=== PATIENT | male | born 1955 | race Caucasian/White ===

== ENCOUNTER 2019-09-09 16:48 | Emergency (ER) | payer BC, OTHER ==
[2019-09-09] MEDS ORDERED: Sodium Chloride 0.9% 1000 ML 1,000 ML IV STA (17:15)
[2019-09-09] MEDS ORDERED: Sodium Chloride 0.9% 1000 ML 1,000 ML ONE (17:43)
[2019-09-09 18:03] LABS: Absolute Neutrophil Ct (ANC) 7.58 (1.4-6.9); BASOPHIL % 0.3 % (0.0-0.4); Basophil (Absolute #) 0.03 (0-0.4); Eosinophil % 0.8 % (0.00-5.0); Eosinophil (Absolute #) 0.08 (0-0.5); Hematocrit 45.1 % (42-50); Hemoglobin 15.8 gm/dl (12.5-18.0); Lymphocyte (Absolute #) 1.53 (1.0-4.6); Lymphocytes % 15.8 % (24.0-44.0); Mean Cell Volume 89.5 fl (78-100); Mean Corpuscular Hemoglobin 31.3 pg (26-32); Mean Platelet Volume 11.5 fl (7.5-11.0); Monocyte (Absolute #) 0.49 (0.0-1.3); Neutrophil % 78.1 % (36.0-66.0); Platelet Count 221 K/mm3 (150-450); Red Blood Count 5.04 M/mm3 (4.1-5.6); Red Cell Distribution Width 12.4 % (11.5-14.0); White Blood Count 9.7 K/mm3 (4.0-10.5)
[2019-09-09 18:11] LABS: INR 1.05 (0.8-3.0); PROTIME 11.9 SECONDS (8.83-12.87)
[2019-09-09 18:15] LABS: ALBUMIN 4.1 g/dL (3.5-5.0); ALKALINE PHOSPHATASE 87 U/L (38-126); ANION GAP 10.4 MEQ/L (5-15); BLOOD UREA NITROGEN 21 mg/dL (9-20); CHLORIDE 106 mmol/L (98-107); Calcium 8.9 mg/dL (8.4-10.2); Carbon Dioxide 26 mmol/L (22-30); Creatinine 1 0.77 mg/dL (0.66-1.25); Glucose 101 mg/dL (74-106); LIPASE 58 U/L (23-300); Potassium 3.7 mmol/L (3.5-5.1); SGOT/AST 26 U/L (17-59); SGPT/ALT 29 U/L (0-50); SODIUM 139 mmol/L (137-145)
[2019-09-09 18:57] LABS: Appearance TURBID (CLEAR); Bilirubin NEGATIVE (NEGATIVE); Blood LARGE Ery/ul (0-5); Glucose 50 mg/dL (NEGATIVE); Ketones TRACE (NEGATIVE); Leukocyte Esterase NEGATIVE (NEGATIVE); Nitrite NEGATIVE (NEGATIVE); Protein,Urine Dip 100 (Negative); Urobilinogen NEGATIVE mg/dL (0-1)
[2019-09-09 18:58] LABS: Bacteria FEW /HPF (NEGATIVE); RBC >101 /HPF (0-2)
--- NOTE | 2019-09-09 19:10 | ERPHSYRPT ---
- History of Present Illness Time Seen by Provider: 09/09/19 17:15 Source: patient Exam Limitations: no limitations Patient Subjective Stated Complaint: Hematuria Triage Nursing Assessment: Patient ambulated back to ED and transferred self to bed. Patient A+O X3. Patient's skin pink, warm and dry. Patient complains of hematuria that started a few hours ago. Patient states he has been doing yard work with a tractor the past few days. Patient denies pain or discomfort. Patient urinated bright red blood. Physician History: Patient is a 64-year-old male presents to our ED with complaints of painless hematuria. Symptoms were observed approximately 3 PM today. Patient states that he has been on a riding mower over the past couple days cutting grass. No trauma. No fevers. No back pain. No abdominal pain. No history of kidney stones. No history of cancer. No history of cystitis. No history of UTI. No associated chest pain or shortness of breath. No nausea vomiting. No diarrhea. No easy bruising. No history of coagulopathy. Patient voices no other complaints at this time. Timing/Duration: today Activites at Onset: none Pain Radiation: none Severity of Pain-Max: none Severity of Pain-Current: none Modifying Factors: Improves With: nothing Prior abdominal problems: none Allergies/Adverse Reactions: No Known Drug Allergies Allergy (Unverified 09/09/19 17:04) Home Medications: Amlodipine Besylate 1 ea DAILY 09/09/19 [History] Ascorbic Acid [Vitamin C with Sammie Hips] 1 each DAILY 09/09/19 [History] Atorvastatin Calcium 10 mg PO DAILY 09/09/19 [History] B-Complex with Vitamin C [B-Complex Plus Vitamin C] 300 mg DAILY 09/09/19 [ History] Cholecalciferol (Vitamin D3) [Vitamin D3] 1 each DAILY 09/09/19 [History] Flaxseed Oil 1 each DAILY 09/09/19 [History] Gluc Amaro/Chondro Amaro A/Vit C/Mn [Glucosamine Chondroitin Tab] 1 each DAILY [History] Sertraline HCl 1 ea DAILY 09/09/19 [History] Zinc 1 ea DAILY 09/09/19 [History] Hx Influenza Vaccination/Date Given: Yes Hx Pneumococcal Vaccination/Date Given: No Immunizations Up to Date: Yes Travel Risk - International Travel Have you traveled outside of the country in past 3 weeks: No Have you or anyone close to you been diagnosed with or: No Do your reside in a community with a known COVID-19 case?: No - Coronavirus Screening Has patient experienced Coronavirus symptoms: No - Past Medical History Pertinent Past Medical History: Yes Neurological History: No Pertinent History ENT History: No Pertinent History Cardiac History: High Cholesterol, Hypertension Respiratory History: No Pertinent History Endocrine Medical History: No Pertinent History Musculoskeletal History: No Pertinent History GI Medical History: No Pertinent History History: No Pertinent History Psycho-Social History: No Pertinent History Male Reproductive Disorders: No Pertinent History - Past Surgical History Past Surgical History: Yes Neuro Surgical History: No Pertinent History Cardiac: No Pertinent History Respiratory: No Pertinent History Gastrointestinal: No Pertinent History Genitourinary: No Pertinent History Musculoskeletal: Other Other Surgical History: Right hand, middle finger tendon repair. - Social History Smoking Status: Never smoker Exposure to second hand smoke: No Drug Use: none Patient Lives Alone: No - Review of Systems Constitutional: No Fever, No Chills Eyes: No Symptoms Ears, Nose, & Throat: No Symptoms Respiratory: No Symptoms, No Cough, No Dyspnea Cardiac: No Symptoms, No Chest Pain, No Edema, No Syncope Abdominal/Gastrointestinal: No Symptoms, No Abdominal Pain, No Nausea, No Vomiting, No Diarrhea Genitourinary Symptoms: No Symptoms, No Dysuria Musculoskeletal: No Symptoms, No Back Pain, No Neck Pain Skin: No Symptoms, No Rash Neurological: No Symptoms, No Dizziness, No Focal Weakness, No Sensory Changes Psychological: No Symptoms Endocrine: No Symptoms Hematologic/Lymphatic: No Symptoms Immunological/Allergic: No Symptoms All Other Systems: Reviewed and Negative - Nursing Vital Signs Nursing Vital Signs: Initial Vital Signs Temperature 98.0 F 09/09/19 17:04 Pulse Rate 90 09/09/19 17:04 Respiratory Rate 18 09/09/19 17:04 Blood Pressure 151/92 09/09/19 17:04 O2 Sat by Pulse Oximetry 97 09/09/19 17:04 Pain Scale Pain Intensity 0 - Physical Exam General Appearance: no apparent distress, alert Eye Exam: PERRL/EOMI Ears, Nose, Throat Exam: pharynx normal, moist mucous membranes Neck Exam: normal inspection, supple Respiratory Exam: normal breath sounds, lungs clear Cardiovascular Exam: regular rate/rhythm, No edema Gastrointestinal/Abdomen Exam: soft, No tenderness Back Exam: normal inspection, No CVA tenderness Extremity Exam: normal inspection, normal range of motion, No pedal edema Neurologic Exam: alert, oriented x 3, cooperative, sensation nml, No motor deficits Skin Exam: normal color, warm, dry, No rash SpO2: 95 O2 Delivery: Room Air - Course Nursing assessment & vital signs reviewed: Yes - CT Exams Abdomen/Pelvis CT Interpretation: Tele-radiologist Report (Adenitis, hepatic cyst, splenic cyst, punctate gallstone, diverticulosis, spondylolysis) Ordered Tests: Active Orders 24 hr Category Date Time Status IV Insertion STAT Care 09/09/19 17:15 Active ABDOMEN AND PELVIS W CONTRAST [CT] Stat Exams 09/09/19 18:33 Taken CBC W DIFF Stat Lab 09/09/19 17:40 Completed CMP Stat Lab 09/09/19 17:40 Completed CULTURE,URINE Stat Lab 09/09/19 17:00 Received LIPASE Stat Lab 09/09/19 17:40 Completed PROTIME WITH INR Stat Lab 09/09/19 17:40 Completed UA W/RFX UR CULTURE Stat Lab 09/09/19 17:00 Completed Medication Summary Discontinued Medications Generic Name Dose Route Start Last Admin Trade Name Freq PRN Reason Stop Dose Admin Sodium Chloride 1,000 mls @ 999 mls/hr 09/09/19 17:15 09/09/19 18:48 Sodium Chloride 0.9% 1000 Ml IV 09/09/19 18:15 Infused .Q1H1M STA Infusion Sodium Chloride Confirm 09/09/19 17:43 Sodium Chloride 0.9% 1000 Ml Administered 09/09/19 17:44 Dose 1,000 mls @ ud .ROUTE .K[employer] ONE Lab/Rad Data: Laboratory Result Diagrams 09/09/19 17:40 09/09/19 17:40 Laboratory Results 09/09/19 09/09/19 09/09/19 Range/Units 17:40 17:40 17:40 WBC 9.7 (4.0-10.5) K/mm3 RBC 5.04 (4.1-5.6) M/mm3 Hgb 15.8 (12.5-18.0) gm/dl Hct 45.1 (42-50) % MCV 89.5 (78-100) fl MCH 31.3 (26-32) pg MCHC 35.0 (32-36) g/dl RDW 12.4 (11.5-14.0) % Plt Count 221 (150-450) K/mm3 MPV 11.5 H (7.5-11.0) fl Gran % 78.1 H (36.0-66.0) % Eos # (Auto) 0.08 (0-0.5) Absolute Lymphs (auto) 1.53 (1.0-4.6) Absolute Monos (auto) 0.49 (0.0-1.3) Lymphocytes % 15.8 L (24.0-44.0) % Monocytes % 5.0 (0.0-12.0) % Eosinophils % 0.8 (0.00-5.0) % Basophils % 0.3 (0.0-0.4) % Absolute Granulocytes 7.58 H (1.4-6.9) Basophils # 0.03 (0-0.4) PT 11.9 (8.83-12.87) SECONDS INR 1.05 (0.8-3.0) Sodium 139 (137-145) mmol/L Potassium 3.7 (3.5-5.1) mmol/L Chloride 106 (98-107) mmol/L Carbon Dioxide 26 (22-30) mmol/L Anion Gap 10.4 (5-15) MEQ/L BUN 21 H (9-20) mg/dL Creatinine 0.77 (0.66-1.25) mg/dL Estimated GFR > 60.0 ML/MIN Glucose 101 (74-106) mg/dL Calcium 8.9 (8.4-10.2) mg/dL Total Bilirubin 0.80 (0.2-1.3) mg/dL AST 26 (17-59) U/L ALT 29 (0-50) U/L Alkaline Phosphatase 87 (38-126) U/L Serum Total Protein 7.0 (6.3-8.2) g/dL Albumin 4.1 (3.5-5.0) g/dL Lipase 58 (23-300) U/L Urine Color (YELLOW) Urine Appearance (CLEAR) Urine pH (5-6) Ur Specific [place] (1.005-1.025) Urine Protein (Negative) Urine Ketones (NEGATIVE) Urine Blood (0-5) Joe/ul Urine Nitrite (NEGATIVE) Urine Bilirubin (NEGATIVE) Urine Urobilinogen (0-1) mg/dL Ur Leukocyte Esterase (NEGATIVE) Urine WBC (Auto) (0-5) /HPF Urine RBC (Auto) (0-2) /HPF U Epithel Cells (Auto) (FEW) /HPF Urine Bacteria (Auto) (NEGATIVE) /HPF Urine Culture Reflexed (NO) Urine Glucose (NEGATIVE) mg/dL 09/09/19 Range/Units 17:00 WBC (4.0-10.5) K/mm3 RBC (4.1-5.6) M/mm3 Hgb (12.5-18.0) gm/dl Hct (42-50) % MCV (78-100) fl MCH (26-32) pg MCHC (32-36) g/dl RDW (11.5-14.0) % Plt Count (150-450) K/mm3 MPV (7.5-11.0) fl Gran % (36.0-66.0) % Eos # (Auto) (0-0.5) Absolute Lymphs (auto) (1.0-4.6) Absolute Monos (auto) (0.0-1.3) Lymphocytes % (24.0-44.0) % Monocytes % (0.0-12.0) % Eosinophils % (0.00-5.0) % Basophils % (0.0-0.4) % Absolute Granulocytes (1.4-6.9) Basophils # (0-0.4) PT (8.83-12.87) SECONDS INR (0.8-3.0) Sodium (137-145) mmol/L Potassium (3.5-5.1) mmol/L Chloride (98-107) mmol/L Carbon Dioxide (22-30) mmol/L Anion Gap (5-15) MEQ/L BUN (9-20) mg/dL Creatinine (0.66-1.25) mg/dL Estimated GFR ML/MIN Glucose (74-106) mg/dL Calcium (8.4-10.2) mg/dL Total Bilirubin (0.2-1.3) mg/dL AST (17-59) U/L ALT (0-50) U/L Alkaline Phosphatase (38-126) U/L Serum Total Protein (6.3-8.2) g/dL Albumin (3.5-5.0) g/dL Lipase (23-300) U/L Urine Color RED (YELLOW) Urine Appearance TURBID (CLEAR) Urine pH 6.0 (5-6) Ur Specific [place] 1.020 (1.005-1.025) Urine Protein 100 (Negative) Urine Ketones TRACE (NEGATIVE) Urine Blood LARGE (0-5) Joe/ul Urine Nitrite NEGATIVE (NEGATIVE) Urine Bilirubin NEGATIVE (NEGATIVE) Urine Urobilinogen NEGATIVE (0-1) mg/dL Ur Leukocyte Esterase NEGATIVE (NEGATIVE) Urine WBC (Auto) 11-15 (0-5) /HPF Urine RBC (Auto) >101 (0-2) /HPF U Epithel Cells (Auto) NONE (FEW) /HPF Urine Bacteria (Auto) FEW (NEGATIVE) /HPF Urine Culture Reflexed YES (NO) Urine Glucose 50 (NEGATIVE) mg/dL - Progress Progress: improved Progress Note: 09/09/19 20:19 Patient reassessed. Patient urinated while in the ED. Patient's urine is now clearing up. Unclear the source of the painless hematuria. Possible cystitis. Will treat empirically with antibiotics. Patient referred to urology for follow-up. Counseled pt/family regarding: lab results, diagnosis, need for follow-up, rad results - Departure Departure Disposition: Home, Extended Care Facility Clinical Impression: Painless hematuria, Adenitis, Hepatic cyst, Splenic cyst, Diverticulosis, Spondylolysis of lumbar region Condition: Stable Critical Care Time: No Referrals: ROEL HUBBARD MD [Primary Care Provider] - CARLEEN WARD [COURTESY STAFF] - Additional Instructions: Please follow-up with your urologist or primary care doctor within 48 hours for reevaluation. Discharge/Care Plan ANT BENNETT was seen on 09/09/19 in the Emergency Room. The patient was counseled regarding Diagnosis,Lab results, Imaging studies, need for follow up and when to return to the Emergency Room. Prescriptions given: Discharge Note I have spoken with the patient and/or caregivers. I have explained the patient' s condition, diagnosis and treatment plan based on the information available to me at this time. I have answered the patient's and/or caregiver's questions and addressed any concerns. The patient and/or caregivers have as good understanding of the patient's diagnosis, condition and treatment plan as can be expected at this point. The vital signs have been stable. The patient's condition is stable and appropriate for discharge from the emergency department. The patient will pursue further outpatient evaluation with the primary care physician or other designated or consulting physician as outlined in the discharge instructions. The patient and/or caregivers are agreeable to this plan of care and follow-up instructions have been explained in detail. The patient and/or caregivers have received these instruction. The patient/and or caregivers are aware that any significant change in condition or worsening of symptoms should prompt an immediate return to this or the closest emergency department or call 911. Prescriptions: Ciprofloxacin [Cipro 500 MG] 500 mg PO BID #14 tablet
[2019-09-09 19:40] VITALS: BP 130/83; PULSE 70
[2019-09-09 19:44] VITALS: O2SAT 95
[2019-09-09 20:55] LABS: CHLAMYDIA DNA NOT DETECTED (NEGATIVE); GC DNA Probe NOT DETECTED (NEGATIVE)
--- NOTE | 2019-09-10 07:27 | XRAY ---
Indication: Gross hematuria. Multiple contiguous axial images obtained through the abdomen and pelvis using 80 cc of Isovue-370 contrast only. Comparison: None Lung bases demonstrate mild bibasilar dependent atelectasis. No infiltrate or effusion. Heart is not enlarged. Small hiatal hernia. Noncontrasted stomach and bowel loops appear nonobstructed. Normal appendix. Mild scattered colonic diverticulosis without diverticulitis. No free fluid/air. A few centimeter/subcentimeter mid abdomen mesenteric nodes with minimal stranding favoring adenitis. Right lobe of the liver demonstrates a 2 cm cyst. Tiny punctate gallstone and 8 mm splenic cyst. Both kidneys enhance and excrete without focal solid/cystic renal mass, hydronephrosis, or perinephric fluid. Remaining liver, gallbladder, pancreas, spleen, adrenal glands, kidneys, ureters, and bladder appear unremarkable. Minimal aortoiliac calcifications. No AAA or pathological retroperitoneal lymphadenopathy. Osseous structures intact with bilateral L5 spondylolysis without spondylolisthesis. Small fatty umbilical hernia. Impression: 1. Small mid abdomen mesenteric nodes with stranding favoring mesenteric adenitis. 2. Small hiatal hernia, colonic diverticulosis, punctate gallstone, hepatic/splenic cyst, fatty umbilical hernia, and L5 spondylolysis without spondylolisthesis. 3. Remaining CT abdomen/pelvis with contrast exam is negative.
== END 2019-09-09 19:41 | disposition home or self-care (01) ==
LOC: ED 16:48
DX: R31.9 Hematuria, unspecified (principal); I88.9 Nonspecific lymphadenitis, unspecified; K76.89 Other specified diseases of liver; D73.4 Cyst of spleen; K57.90 Diverticulosis of intestine, part unspecified, without perforation or abscess without bleeding; M43.06 Spondylolysis, lumbar region; Z79.899 Other long term (current) drug therapy; E78.00 Pure hypercholesterolemia, unspecified; I10 Essential (primary) hypertension
CPT/HCPCS: 36000; 36415; 74177; 80053; 81001; 83690; 85025; 85610; 87086; 87491; 87591; 96360; 99284

== ENCOUNTER 2023-09-15 12:02 | Emergency (ER) | payer MEDICARE, OTHER ==
[2023-09-15] MEDS ORDERED: XYLOCAINE 1% HCL 20 ML MDV ONE (12:13)
[2023-09-15 12:18] VITALS: BP 146/84; PULSE 70; TEMP 98.5; O2SAT 96
--- NOTE | 2023-09-15 12:47 | ERPHSYRPT ---
- History of Present Illness Time Seen by Provider: 09/15/23 12:10 Source: patient Exam Limitations: no limitations Patient Subjective Stated Complaint: Pt cut his left wrist with a grinder outside diameter at work causing a 3 cm laceration Triage Nursing Assessment: Pt brought to the ER by his boss, hypertensive, rates pain as 2/10, 3 cm laceration to the left lateral wrist, controlled bleeding, pulses normal, cap refill normal, doesn't appear to be in any distress Physician History: 68-year-old male presents to emergency department for evaluation of a laceration to the dorsal aspect of his left hand. Patient was at work using a grinder outside diameter when he injured himself with a grinder outside diameter. Injury occurred just prior to arrival. Tetanus not up-to-date. Pain described as an ache that is localized. No radiation. The laceration is superficial. No other injuries reported. Patient otherwise feels well. He voices no other complaints or concerns at this time. Portions of this note were created with voice recognition technology. There may be grammatical, spelling, punctuation or sound alike errors Timing/Duration: today Severity: moderate Modifying Factors: Improves With: nothing Associated Symptoms: denies symptoms Allergies/Adverse Reactions: No Known Drug Allergies Allergy (Verified 09/15/23 12:18) Home Medications: Amlodipine Besylate 5 mg PO DAILY 09/09/19 [History] Ascorbic Acid [Vitamin C with Sammie Hips] 500 mg PO DAILY 09/09/19 [History] Atorvastatin Calcium 20 mg PO DAILY 09/09/19 [History] Cholecalciferol (Vitamin D3) [Vitamin D3] 1,000 mg PO DAILY 09/09/19 [History] Gluc Amaro/Chondro Amaro A/Vit C/Mn [Glucosamine Chondroitin Tab] 1 each PO DAILY 03/20 [History] Sertraline HCl 50 ea PO DAILY 09/09/19 [History] Zinc 50 mg PO DAILY 09/09/19 [History] flaxseed oiL [Flaxseed Oil] 1,000 mg PO DAILY 09/09/19 [History] Metformin HCl 500 mg [Glucophage 500 MG] 1,000 mg PO BIDWM 09/15/23 [History] Hx Influenza Vaccination/Date Given: Yes Hx Pneumococcal Vaccination/Date Given: No Travel Risk - International Travel Have you traveled outside of the country in past 3 weeks: No - Emerging Infectious Disease Are you exhibiting symptoms associated with any current EIDs: No - Review of Systems Constitutional: No Symptoms, No Fever, No Chills Eyes: No Symptoms Ears, Nose, & Throat: No Symptoms Respiratory: No Symptoms, No Cough, No Dyspnea Cardiac: No Symptoms, No Chest Pain, No Edema, No Syncope Abdominal/Gastrointestinal: No Symptoms, No Abdominal Pain, No Nausea, No Vomiting, No Diarrhea Genitourinary Symptoms: No Symptoms, No Dysuria Musculoskeletal: No Symptoms, No Back Pain, No Neck Pain Skin: No Symptoms, No Rash Neurological: No Symptoms, No Dizziness, No Focal Weakness, No Sensory Changes Psychological: No Symptoms Endocrine: No Symptoms Hematologic/Lymphatic: No Symptoms Immunological/Allergic: No Symptoms All Other Systems: Reviewed and Negative - Past Medical History Pertinent Past Medical History: Yes Neurological History: No Pertinent History ENT History: No Pertinent History Cardiac History: High Cholesterol, Hypertension Respiratory History: No Pertinent History Endocrine Medical History: No Pertinent History Musculoskeletal History: No Pertinent History GI Medical History: No Pertinent History History: No Pertinent History Psycho-Social History: No Pertinent History Male Reproductive Disorders: No Pertinent History - Past Surgical History Past Surgical History: Yes Neuro Surgical History: No Pertinent History Cardiac: No Pertinent History Respiratory: No Pertinent History Gastrointestinal: No Pertinent History Genitourinary: No Pertinent History Musculoskeletal: Other Other Surgical History: Right hand, middle finger tendon repair. - Social History Smoking Status: Never smoker Exposure to second hand smoke: No Drug Use: none Patient Lives Alone: No - Nursing Vital Signs Nursing Vital Signs: Initial Vital Signs Temperature 98.5 F 09/15/23 12:08 Pulse Rate 70 09/15/23 12:08 Blood Pressure 146/84 09/15/23 12:08 O2 Sat by Pulse Oximetry 96 09/15/23 12:08 Pain Scale Pain Intensity 2 - Physical Exam General Appearance: no apparent distress, alert Eye Exam: PERRL/EOMI, eyes nml inspection Ears, Nose, Throat Exam: normal ENT inspection, TMs normal, pharynx normal, moist mucous membranes Neck Exam: normal inspection, non-tender, supple, full range of motion Respiratory Exam: normal breath sounds, lungs clear, airway intact, No respiratory distress Cardiovascular Exam: regular rate/rhythm, normal heart sounds, normal peripheral pulses Gastrointestinal/Abdomen Exam: soft, normal bowel sounds, No tenderness, No mass Back Exam: normal inspection, normal range of motion, No CVA tenderness, No vertebral tenderness Extremity Exam: normal inspection, normal range of motion, pelvis stable Neurologic Exam: alert, oriented x 3, cooperative, normal mood/affect, nml cerebellar function, nml station & gait, sensation nml, No motor deficits Skin Exam: normal color, warm, dry, No rash Lymphatic Exam: No adenopathy SpO2 Interpretation: normal SpO2: 96 O2 Delivery: Room Air Procedures - Laceration/Wound Repair Left Dorsal Hand Time of Procedure: 12:35 Wound Location: Left Wound Length (cm): 2.5 Wound's Depth, Shape: superficial Wound Explored: clean Irrigated: Yes Hibiclens Prep: Yes Anesthesia: 2% Lidocaine Volume Anesthetic (ccs): 4 Wound Repaired With: sutures (No debridement indicated) Suture Size/Type: 5-0, ethilon Number of Sutures: 6 Layer Closure?: No Sterile Dressing Applied?: Yes Splint Applied?: No Sling Applied?: No Progress: 09/15/23 12:49 Patient neurovascular intact distally postprocedure. - Course Nursing assessment & vital signs reviewed: Yes Ordered Tests: Medication Summary Discontinued Medications Generic Name Dose Route Start Last Admin Trade Name Freq PRN Reason Stop Dose Admin Lidocaine HCl Confirm 09/15/23 12:13 Lidocaine Hcl 1% 20 Ml Mdv 20 Ml Ml Administered 09/15/23 12:14 Dose 1 ml .ROUTE .[employer] ONE - Progress Progress: improved Progress Note: 68-year-old male presents to our ED with a superficial laceration to the left dorsal hand. Extensor tendons are intact. Cap refill less than 2 seconds. No tendinous involvement. 6 sutures placed. Patient neurovascular tact distally postprocedure. Patient is a diabetic. Tetanus updated. Patient will receive a prescription for Keflex which was forwarded to patient's pharmacy. Sutures are to be removed in a week's time. All patient question answered patient voices no other concerns at this time. Portions of this note were created with voice recognition technology. There may be grammatical, spelling, punctuation or sound alike errors Complexity problem addressed is low acute uncomplicated No critical care time Complex of data reviewed and analyzed is none. No specialized testing ordered. Diagnosis made based on history and physical exam. Risk complication and a risk morbidity/mortality patient management is moderate. Prescription for Toradol forwarded to patient's pharmacy. Vital stable. Time spent to discharge patient is approximately 15 minutes. Plan of care established for shared decision making. No social determinants of health present impede follow-up. Portions of this note were created with voice recognition technology. There may be grammatical, spelling, punctuation or sound alike errors 09/15/23 12:43 Counseled pt/family regarding: diagnosis, need for follow-up - Departure Departure Disposition: Home Clinical Impression: Laceration Condition: Stable Critical Care Time: No Referrals: ROEL HUBBARD MD [Primary Care Provider] - Follow up/PCP as directed Additional Instructions: Discharge/Care Plan ANT BENNETT was seen on 09/15/23 in the Emergency Room. The patient was counseled regarding Diagnosis,Lab results, Imaging studies, need for follow up and when to return to the Emergency Room. Prescriptions given: Discharge Note I have spoken with the patient and/or caregivers. I have explained the patient's condition, diagnosis and treatment plan based on the information available to me at this time. I have answered the patient's and/or caregiver's questions and addressed any concerns. The patient and/or caregivers have as good understanding of the patient's diagnosis, condition and treatment plan as can be expected at this point. The vital signs have been stable. The patient's condition is stable and appropriate for discharge from the emergency department. The patient will pursue further outpatient evaluation with the primary care physician or other designated or consulting physician as outlined in the discharge instructions. The patient and/or caregivers are agreeable to this plan of care and follow-up instructions have been explained in detail. The patient and/or caregivers have received these instruction. The patient/and or caregivers are aware that any significant change in condition or worsening of symptoms should prompt an immediate return to this or the closest emergency department or call 911. Prescriptions: Cephalexin Mh 500 mg [Keflex 500 mg] 500 mg PO TID 5 Days #15 cap
[2023-09-15] MEDS ORDERED: Adacel Vial IM ONE (12:49)
[2023-09-15] MEDS: Adacel Vial IM ONE (12:50)
== END 2023-09-15 13:04 | disposition home or self-care (01) ==
LOC: ED 12:02
DX: S61.512A Laceration without foreign body of left wrist, initial encounter (principal); Y28.8XXA Contact with other sharp object, undetermined intent, initial encounter; Z79.899 Other long term (current) drug therapy
CPT/HCPCS: 12001; 90471; 90715; 99282